=== PATIENT | female | born 1965 | race Caucasian/White ===

== ENCOUNTER 2019-01-09 23:53 | Observation (INO) ==
[2019-01-10] MEDS ORDERED: ZOFRAN INJ 4 MG VIAL IVP ONE ×2 (00:45→01:37)
[2019-01-10] MEDS ORDERED: PEPCID 20 MG IV PREMIX* 20 MG/50 ML BAG IV ONE (00:45)
[2019-01-10] MEDS ORDERED: PEPCID 20 MG IV PREMIX* 20 MG/50 ML BAG ONE (00:46)
[2019-01-10] MEDS ORDERED: ZOFRAN TAB 4 MG ONE (00:46)
[2019-01-10] MEDS ORDERED: ZOFRAN INJ 4 MG VIAL ONE ×2 (00:47→01:36)
[2019-01-10] MEDS ORDERED: NS 100 ML IV 100 ML ONE (00:49)
[2019-01-10 00:57] LABS: BASOPHILS # (AUTO) 0.1 X10^3/uL (0.0-0.1); BASOPHILS % (AUTO) 0.7 % (0.2-1.0); EOSINOPHILS # (AUTO) 0.1 x10^3/uL (0.0-0.2); EOSINOPHILS % (AUTO) 0.8 % (0.9-2.9); HEMATOCRIT 37.2 % (36.0-47.0); HEMOGLOBIN 12.4 g/dL (12.0-16.0); LYMPHOCYTES # (AUTO) 2.5 X10^3/uL (1.3-2.9); LYMPHOCYTES % (AUTO) 22.5 % (21.0-51.0); MEAN CORPUSCULAR HEMOGLOBIN 28.4 pg (27.0-34.0); MEAN CORPUSCULAR HGB CONC 33.2 g/dL (33.0-35.0); MEAN CORPUSCULAR VOLUME 85.6 fL (80.0-100.0); MEAN PLATELET VOLUME 8.2 fL (7.4-11.0); NEUTROPHILS # (AUTO) 7.4 x10^3/uL (2.2-4.8); PLATELET COUNT 203 X10^3/uL (150.0-450.0); RED BLOOD COUNT 4.35 X10^6/uL (3.5-5.4); RED CELL DISTRIBUTION WIDTH 14.2 % (11.6-16.5)
--- NOTE | 2019-01-10 01:11 | CT ---
CT head without contrast Indication: Headache and vomiting Technique: Helical CT images of the brain were obtained without IV contrast. Reformatted images in the coronal and sagittal planes were also generated for review. Comparison: None Findings: Meyers-white differentiation is maintained. No visible acute infarction, intracranial hemorrhage, focal generalized edema, extra-axial collection, hydrocephalus or mass is identified. The visualized paranasal sinuses and mastoid air cells are predominantly clear. The imaged extracranial structures are grossly unremarkable. Impression: No acute intracranial abnormality. Reported By:
[2019-01-10 01:14] LABS: BLOOD UREA NITROGEN 31 mg/dL (7-18); CALCIUM 9.5 mg/dL (8.5-10.1); CARBON DIOXIDE 23.8 mmol/L (21-32); CHLORIDE 100 mmol/L (98-107); COR NA(FOR HYPERGLY) 140 mmol/L (136-145); SODIUM 138 mmol/L (136-145); TROPONIN I < 0.02 ng/mL (0-1.5); eGFR NON BLACK RACES 42 (>60)
[2019-01-10 01:18] LABS: ALANINE AMINOTRANSFERASE 24 Units/L (12-78); ALBUMIN 3.7 g/dL (3.4-5.0); ALKALINE PHOSPHATASE 72 Units/L (46-116); ASPARTATE AMINO TRANSFERASE 6 Units/L (15-37); CKMB % 1.9 % (<4); CREATINE KINASE 127 Units/L (26-192); CREATINE KINASE MB 2.4 ng/mL (0-4.0)
[2019-01-10] MEDS ORDERED: SOLU-Medrol 125 MG VIAL ONE (01:36)
[2019-01-10] MEDS ORDERED: SOLU-Medrol 125 MG VIAL IVP ONE (01:37)
--- NOTE | 2019-01-10 02:25 | DR.EXTPAIN ---
HPI Time seen Time Seen by Provider: 01/10/19 00:02 PCP Primary Care Physician: HPI Comment HPI Comment: DASHA IS 53YR OLD WHITE FEMALE WITH HISTORY OF HYPERTENSION, DM AND CEREBRAL VASCULITIS PRESENTS WITH BELOW COMPLAINT. WEAKNESS AND NUMBNESS STARTED YESTERDAY AND IS INTERMITTENT. HEADACHE, N/V STARTED TODAY. VISION IS BLURRY. HAVE HAD PREVIOUS DECREASE VISION THAT IMPROVE WITH TREATMENT. Complaint/Symptoms Chief Complaint Doctor Comments: RIGHT SIDED WEAKNESS AND NUMBNESS AND HEADACHE WITH NAUSEA AND VOMITING THAT STARTED YESTERDAY. Chief Complaint:: STROKE LIKE SYMPTOMS STARTED YESTERDAY RIGHTSIDED WEAKNESS AN RIGHT SIDE TINGLING AND NUBNESS Nurses notes reviewed Nurses Notes Review: Yes Source History Provided: Patient and Friend Mode of arrival Mode of Arrival: Wheelchair Timing Onset of Chief Complaint: 01/08/19 Context History of: None Associated signs and symptoms Associated Signs and Symptoms: None, Numbeness, Weakness (RIGHT SIDED WEAKNES S.), Headache and Other (BLURRED VISION.) PMH PMH Past Medical History: Yes Past Medical History: Diabetes and Hypertension Past Medical History Comment: CERBAL VASULARICITIS Past Surgical History: Yes Surgical History: Cholecystectomy Past Surgical History Comment: BREAST BIOPSY,EGD Family History History of Family Medical Conditions: Yes Family Medical History: Diabetes Mellitus and Hypertension Social History Does patient currently use any type of tobacco product: No Have you used tobacco products in the last 12 months: No Type of Tobacco Use: None Does any household member use tobacco: No Alcohol Use: None Do you use any recreational Drugs:: No Lives With: Family Lives Where: Home infectious screening In the last 2 months have you had wt loss of >10#?: NO Have you had fever, night sweats or hemotysis?: No Have you traveled outside the country in the last 6 months?: No ROS Review of Systems Constitutional: Weakness (RIGHT SIDED WEAKNESS.) and Fatigue Eyes: Blurred Vision ENTM: No Symptoms Reported Respiratoy: No Symptoms Reported Cardiovascular: No Symptoms Reported Gastrointestinal/Abdominal: Nausea and Vomiting Genitourinary: No Symptoms Reported Neurological: Headache, Numbness, Paresthesia, Weakness and Dizziness Musculoskeletal: Joint Pain Integumentary: Change in Color Hematologic/Lymphatic: Easy Bruising Endocrine: No Symptoms Reported Psychiatric: No Symptoms Reported All Other Systems: Reviewed and Negative PE Vital Signs Vitals: Temperature 97.4 F Pulse Rate [Apical] 98 Pulse Rate 95 Respiratory Rate 20 Blood Pressure [Left Arm] 114/59 Blood Pressure 145/69 O2 Sat by Pulse Oximetry 98 General Limitations: No Limitations General Appearance: Alert and In No Apparent Distress Head Head Exam: Normal Inspection Eyes Eye exam: Normal Appearance ENT ENT Exam: Normal External Ear Exam Neck Neck Exam: Normal Inspection Chest Chest Inspection: Normal Inspection and Symmetric Chest Wall Rise Respiratory Respiratory Exam: Normal Lung Sounds Bilat Respiratory Exam: Bilateral: Rhonchi, Left: Rhonchi, Right: Rhonchi and Lower: Rhonchi Cardiovascular Cardiovascular Exam: Regular Rate and Normal Rhythm Abdominal Exam Abdominal Exam: Normal Inspection, Normal Bowel Sounds and Soft Extremities Extremities Exam: Normal Capillary Refill Back Back Exam: Normal Inspection Neurological Neurological Exam: Alert, Oriented X3 and CN II-XII Intact (RIGHT SIDED WEAKNESS) Psychiatric Psychiatric Exam: Normal Affect and Normal Mood Skin Skin Exam: Erythema MDM Differential Diagnosis Differential Diagnosis: Other (CVA, TIA, VASCULITIS, HEADACHE, CT, PNEUMONIA, GASTRITIS. UTI.) COURSE Treatment Treatment: SEE ORDERS. Education/Counseling Education/Counseling: Patient and Family Educated On: Diagnosis ROR Labs Reviewed Laboratory Results Reviewed?: Yes Result Diagrams: 01/11/19 04:24 01/11/19 04:24 Laboratory: WBC 11.3 X10^3/uL (3.6-10.0) H 01/11/19 04:24 RBC 4.13 X10^6/uL (3.5-5.4) 01/11/19 04:24 Hgb 11.9 g/dL (12.0-16.0) L 01/11/19 04:24 Hct 35.7 % (36.0-47.0) L 01/11/19 04:24 MCV 86.5 fL (80.0-100.0) 01/11/19 04:24 MCH 28.9 pg (27.0-34.0) 01/11/19 04:24 MCHC 33.4 g/dL (33.0-35.0) 01/11/19 04:24 RDW 14.3 % (11.6-16.5) 01/11/19 04:24 Plt Count 200 X10^3/uL (150.0-450.0) 01/11/19 04:24 MPV 8.3 fL (7.4-11.0) 01/11/19 04:24 Neut % (Auto) 85.6 % (42.0-75.0) H 01/11/19 04:24 Lymph % (Auto) 9.3 % (21.0-51.0) L 01/11/19 04:24 Love % (Auto) 5.0 % (0.0-13.0) 01/11/19 04:24 Eos % (Auto) 0.0 % (0.9-2.9) L 01/11/19 04:24 Baso % (Auto) 0.1 % (0.2-1.0) L 01/11/19 04:24 Neut # (Auto) 9.7 x10^3/uL (2.2-4.8) H 01/11/19 04:24 Lymph # (Auto) 1.1 X10^3/uL (1.3-2.9) L 01/11/19 04:24 Love # (Auto) 0.6 x10^3/uL (0.3-0.8) 01/11/19 04:24 Eos # (Auto) 0.0 x10^3/uL (0.0-0.2) 01/11/19 04:24 Baso # (Auto) 0.0 X10^3/uL (0.0-0.1) 01/11/19 04:24 Absolute Nucleated RBC 0.0 /100WBC 01/11/19 04:24 ESR 13 MM/HOUR (0-20) 01/10/19 00:35 INR Target Range - 01/10/19 00:35 INR 0.94 (0.8-1.3) 01/10/19 00:35 APTT 25.5 SECONDS (22.9-36.5) 01/10/19 00:35 PTT Comment - 01/10/19 00:35 Sodium 139 mmol/L (136-145) 01/11/19 04:24 Corrected Sodium 144 mmol/L (136-145) 01/11/19 04:24 Potassium 4.6 mmol/L (3.5-5.1) 01/11/19 04:24 Chloride 103 mmol/L (98-107) 01/11/19 04:24 Carbon Dioxide 24.6 mmol/L (21-32) 01/11/19 04:24 BUN 22 mg/dL (7-18) H 01/11/19 04:24 Creatinine 1.14 mg/dL (0.55-1.02) H 01/11/19 04:24 Est GFR (MDRD) Af Amer > 60 (>60) 01/11/19 04:24 Est GFR (MDRD) Non-Af 53 (>60) L 01/11/19 04:24 Glucose 294 mg/dL (65-99) H 01/11/19 04:24 POC Glucose (mg/dL) 256 mg/dL (65-99) H 01/11/19 10:52 Hemoglobin A1c 9.2 % 01/10/19 05:36 Calcium 8.6 mg/dL (8.5-10.1) 01/11/19 04:24 Corrected Calcium 9.2 mg/dL (8.5-10.1) 01/11/19 04:24 Total Bilirubin 0.50 mg/dL (0.2-1.0) 01/11/19 04:24 AST 6 Units/L (15-37) L 01/11/19 04:24 ALT 22 Units/L (12-78) 01/11/19 04:24 Alkaline Phosphatase 52 Units/L (46-116) 01/11/19 04:24 Creatine Kinase 81 Units/L (26-192) 01/10/19 12:09 CK-MB (CK-2) 2.4 ng/mL (0-4.0) 01/10/19 12:09 CK/CKMB % Calc 3.0 % (<4) 01/10/19 12:09 Troponin I < 0.02 ng/mL (0-1.5) 01/10/19 12:09 C-Reactive Protein 0.60 mg/L (0-3.0) 01/10/19 00:35 Total Protein 6.3 g/dL (6.4-8.2) L 01/11/19 04:24 Albumin 3.2 g/dL (3.4-5.0) L 01/11/19 04:24 Globulin 3.1 g/dL (2.5-4.5) 01/11/19 04:24 Albumin/Globulin Ratio 1.0 Ratio (1.1-2.1) L 01/11/19 04:24 Triglycerides 155 mg/dL (0-150) H 01/10/19 05:36 Cholesterol 141 mg/dL (0-200) 01/10/19 05:36 LDL Cholesterol, Calc 72 mg/dL (0-100) 01/10/19 05:36 HDL Cholesterol 38 mg/dL (40-60) L 01/10/19 05:36 Cholesterol/HDL Ratio 3.7 (0.0-5.0) 01/10/19 05:36 Specimen Type Clean catch urine 01/10/19 03:04 Urine Color Yellow (YELLOW) 01/10/19 03:04 Urine Appearance Clear (CLEAR) 01/10/19 03:04 Urine pH 5.0 (5.0 - 8.0) 01/10/19 03:04 Ur Specific Frederica 1.010 (1.000-1.030) 01/10/19 03:04 Urine Protein Negative (NEGATIVE) 01/10/19 03:04 Urine Glucose (UA) Negative (NEGATIVE) 01/10/19 03:04 Urine Ketones Negative (NEGATIVE) 01/10/19 03:04 Urine Occult Blood Negative (NEGATIVE) 01/10/19 03:04 Urine Nitrite Negative (NEGATIVE) 01/10/19 03:04 Urine Bilirubin Negative (NEGATIVE) 01/10/19 03:04 Urine Urobilinogen Normal (NORMAL) 01/10/19 03:04 Ur Leukocyte Esterase Negative (NEGATIVE) 01/10/19 03:04 XRAY XRAY Interpreted by: Radiologist XRAY Findings: REPORT ON RECORD NOTED AND DISCUSS WITH PATIENT AND HIS FAMILY. EKG Rate: 92 [place]: Normal Rhythm: NSR Block: None Hypertrophy: None (LOW VOLTAGE.) ST: Nonsp Instructions Forms: Patient Portal
[2019-01-10] MEDS ORDERED: XANAX PO PRN (02:38)
[2019-01-10] MEDS ORDERED: SEMAGLUTIDE 0.5 MG subcut SCH (02:38)
[2019-01-10 03:24] LABS: BILIRUBIN,URINE NEGATIVE (NEGATIVE); BLOOD/HEMOGLOBIN,URINE NEGATIVE (NEGATIVE); GLUCOSE, URINE NEGATIVE (NEGATIVE); KETONES,URINE NEGATIVE (NEGATIVE); LEUKOCYTE ESTERASE ,URINE NEGATIVE (NEGATIVE); NITRITES,URINE NEGATIVE (NEGATIVE); PROTEIN,URINE NEGATIVE (NEGATIVE); UROBILINOGEN,URINE NORMAL (NORMAL)
[2019-01-10] MEDS ORDERED: MAALOX or MYLANTA PO PRN (03:44)
[2019-01-10] MEDS ORDERED: MAALOX or MYLANTA ONE (03:45)
[2019-01-10 04:10] LABS: APPEARANCE,URINE CLEAR (CLEAR); COLOR,URINE YELLOW (YELLOW)
[2019-01-10 04:19] VITALS: BMI 44.9
[2019-01-10 05:54] LABS: BASOPHILS % (AUTO) 0.3 % (0.2-1.0); EOSINOPHILS % (AUTO) 0.3 % (0.9-2.9); HEMOGLOBIN 12.3 g/dL (12.0-16.0); LYMPHOCYTES # (AUTO) 1.3 X10^3/uL (1.3-2.9); LYMPHOCYTES % (AUTO) 13.1 % (21.0-51.0); MEAN CORPUSCULAR HEMOGLOBIN 28.7 pg (27.0-34.0); MEAN CORPUSCULAR HGB CONC 33.2 g/dL (33.0-35.0); MEAN CORPUSCULAR VOLUME 86.2 fL (80.0-100.0); MEAN PLATELET VOLUME 8.1 fL (7.4-11.0); MONOCYTES # (AUTO) 0.2 x10^3/uL (0.3-0.8); MONOCYTES % (AUTO) 2.4 % (0.0-13.0); NEUTROPHILS # (AUTO) 8.2 x10^3/uL (2.2-4.8); NEUTROPHILS % (AUTO) 83.9 % (42.0-75.0); PLATELET COUNT 187 X10^3/uL (150.0-450.0); RED BLOOD COUNT 4.29 X10^6/uL (3.5-5.4); RED CELL DISTRIBUTION WIDTH 14.1 % (11.6-16.5); WHITE BLOOD COUNT 9.8 X10^3/uL (3.6-10.0)
[2019-01-10 06:07] LABS: ALANINE AMINOTRANSFERASE 26 Units/L (12-78); ALBUMIN 3.5 g/dL (3.4-5.0); ALKALINE PHOSPHATASE 65 Units/L (46-116); ASPARTATE AMINO TRANSFERASE 10 Units/L (15-37); BLOOD UREA NITROGEN 29 mg/dL (7-18); CALCIUM 9.1 mg/dL (8.5-10.1); CARBON DIOXIDE 21.4 mmol/L (21-32); CHLORIDE 102 mmol/L (98-107); CHOL/HDL RATIO 3.7 (0.0-5.0); CHOLESTEROL 141 mg/dL (0-200); COR NA(FOR HYPERGLY) 142 mmol/L (136-145); CREATININE 1.39 mg/dL (0.55-1.02); HDL CHOLESTEROL 38 mg/dL (40-60); SODIUM 137 mmol/L (136-145); TOTAL PROTEIN 6.8 g/dL (6.4-8.2); TRIGLYCERIDES 155 mg/dL (0-150); eGFR NON BLACK RACES 42 (>60)
[2019-01-10] MEDS: HumuLIN R SUBCUT PRN ×3 (06:23→17:30)
[2019-01-10] MEDS: SOLU-Medrol 40 MG VIAL IVP SCH ×3 (06:23→21:48)
[2019-01-10 06:27] LABS: CKMB % 2.3 % (<4); CREATINE KINASE 88 Units/L (26-192); TROPONIN I < 0.02 ng/mL (0-1.5)
[2019-01-10] MEDS: GLUCOPHAGE PO SCH ×2 (06:47→17:31)
[2019-01-10] MEDS ORDERED: GLUCOPHAGE ONE ×2 (06:48→17:29)
[2019-01-10] MEDS ORDERED: LEXAPRO ONE (08:25)
[2019-01-10] MEDS: LEXAPRO PO SCH (08:34)
[2019-01-10] MEDS: BENICAR TAB 40 MG PO SCH (08:34)
[2019-01-10] MEDS: ASPIRIN EC 81 MG PO SCH (08:34)
[2019-01-10] MEDS: VITAMIN D3 PO SCH (08:35)
[2019-01-10 08:47] LABS: CKMB % 2.8 % (<4); CREATINE KINASE 72 Units/L (26-192); TROPONIN I < 0.02 ng/mL (0-1.5)
[2019-01-10] MEDS: MYCOPHENOLATE MOFETIL 1000 MG PO SCH ×2 (11:00→21:49)
[2019-01-10] MEDS: VIT C E ZN COPPR LUTEIN ZEAXAN PO SCH ×2 (12:11→21:49)
[2019-01-10 12:46] LABS: CREATINE KINASE 81 Units/L (26-192); CREATINE KINASE MB 2.4 ng/mL (0-4.0); TROPONIN I < 0.02 ng/mL (0-1.5)
--- NOTE | 2019-01-10 15:52 | DR.H&P ---
H&P - History & Physical for Day of: H&P Date: 01/10/19 - Chief Complaint Chief Complaint: ACUTE RIGHT SIDE WEAKNESS, R SIDE NUMBNESS, VISION IMPAIRED - History of Present Illness History of Present Illness: 53 WF ER ADMISSION AFTER PRESENTING WITH CO ACUTE RIGHT SIDE WEAKNESS, R SIDE NUMBNESS, VISION IMPAIRED. PT HAS PMH OF DM, HTN, OA, INTERMEDIATE STEROID USE, AUTO IMMUNE VASCULITIS. PT BS ELEVATED IN ER, PT STATES SHE HAS TAKE RX MEDICATION PRESCRIBED, DENIES ANY CP OR SOB, NO UNUSUAL BUTTERFIELD. PT CO BLURRED VISION AND DIFFICULTY WALKING DUE TO RIGHT SIDE WEAKNESS AND NUMBNESS. PT ADMITTED FOR EVALUATION, R/O CVA, HYPERGLYCEMIA CONTROL. - Past Medical History Past Medical History: Anxiety, Arthritis, Diabetes, Hypertension Additional Medical History: INTERMEDIATE STEROID USE. VASCULITIS - Past Surgical History Surgical History: Cholecystectomy, Other - Family History Family Medical History: Diabetes Mellitus, Hypertension - Social History Does patient currently use any type of tobacco product: No Have you used tobacco products in the last 12 months: No Type of Tobacco Use: None Does any household member use tobacco: No Alcohol Use: None Drug Use: None - Medications Home Medications: lansoprazole [From Prevacid] Allergy (Verified 01/10/19 00:12) CONTINUE taking the following medications alprazolam [Xanax] 0.5 mg PO QDAY PRN 01/10/19 [History] aspirin [Aspir-81] 81 mg PO QAM 01/10/19 [History] cetirizine [Zyrtec] 10 mg PO QHS 01/10/19 [History] cholecalciferol (vitamin D3) [Vitamin D3] 5,000 units PO QAM 01/10/19 [History] escitalopram oxalate [Lexapro] 10 mg PO QAM 01/10/19 [History] ibuprofen 800 mg PO Q8H PRN 01/10/19 [History] insulin detemir U-100 [Levemir U-100 Insulin] 20 units SUBCUT QHS 01/10/19 [History] metformin 1,000 mg PO BID 01/10/19 [History] mycophenolate mofetil [CellCept] 1,000 mg PO BID 01/10/19 [History] olmesartan [Benicar] 20 mg PO QAM 01/10/19 [History] pantoprazole [Protonix] 40 mg PO QHS 01/10/19 [History] semaglutide [Ozempic] 0.5 mg SUBCUT WEEKLY 01/10/19 [History] vit C,B-Hf-ovbpe-lutein-zeaxan [PreserVision AREDS-2] 1 cap PO BID 01/10/19 [History] - Review of Systems Constitutional: Weakness Eyes: Vision Change ENT: No Symptoms Reported Respiratory: No Symptoms Reported Cardiovascular: Palpitations Gastrointestinal: No Symptoms Reported Genitourinary: No Symptoms Reported Musculoskeletal: Neck Pain Skin: No Symptoms Reported Neurological: Weakness, Numbness - Physical Exam Vital Signs: Temperature 98.4 F Pulse Rate [Apical] 94 Pulse Rate 95 Respiratory Rate 18 Blood Pressure [Left Arm] 126/68 Blood Pressure 145/69 O2 Sat by Pulse Oximetry 94 Oriented: Normal Eyes: Blurred Vision Ear: Normal Nose: Normal Throat: Normal Respiratory: RLL Diminished, LLL Diminished Cardiovascular: Normal, Edema : Normal Auscultation: Bowel Sounds: Normal Palpation: Other (VENTRAL HERNIA) Tenderness: Normal Skin: Decreased [place]urgur Musculoskeletal: Right, Arm, Leg, Motor Deficit, Sensory Deficit Psychiatric: Anxiety Affect: Anxious Speech Pattern: Clear, Appropriate - Assessment/Plan (1) TIA (transient ischemic attack) Status: Acute Plan: ADMIT, SERIAL CE AND EKG. CT HEAD ON ADMISSION IN ER, MRI/MRA BRAIN ON FRIDAY. BLOOD SUGAR CONTROL, BP CONTROL. ASPIRIN AND STATIN, PRN SUPPLEMENTAL O2. GENTLE IV HYDRATION, STRICT I & OS. CAROTID ARTERY US (2) Hypertension Status: Acute (3) Diabetes Status: Acute (4) Hyperglycemia due to type 2 diabetes mellitus Status: Acute (5) Acute right-sided muscle weakness Status: Acute (6) Paresthesia and pain of right extremity Status: Acute (7) Vision impairment Status: Acute - Allergies Allergies/Adverse Reactions: Allergies Allergy/AdvReac Type Severity Reaction Status Date / Time lansoprazole [From Prevacid] Allergy Verified 01/10/19 00:12
[2019-01-10] MEDS ORDERED: SNACK - Diabetic Appropriate PO SCH ×2 (20:00)
[2019-01-10] MEDS ORDERED: ZyrTEC TAB 10 MG PO SCH (21:00)
[2019-01-10] MEDS ORDERED: LEVEMIR SC SCH (21:00)
[2019-01-10] MEDS ORDERED: PROTONIX TAB 40 MG PO SCH (21:00)
[2019-01-11 05:17] LABS: BASOPHILS % (AUTO) 0.1 % (0.2-1.0); HEMATOCRIT 35.7 % (36.0-47.0); HEMOGLOBIN 11.9 g/dL (12.0-16.0); LYMPHOCYTES # (AUTO) 1.1 X10^3/uL (1.3-2.9); LYMPHOCYTES % (AUTO) 9.3 % (21.0-51.0); MEAN CORPUSCULAR HEMOGLOBIN 28.9 pg (27.0-34.0); MEAN CORPUSCULAR HGB CONC 33.4 g/dL (33.0-35.0); MEAN CORPUSCULAR VOLUME 86.5 fL (80.0-100.0); MEAN PLATELET VOLUME 8.3 fL (7.4-11.0); MONOCYTES # (AUTO) 0.6 x10^3/uL (0.3-0.8); NEUTROPHILS # (AUTO) 9.7 x10^3/uL (2.2-4.8); NEUTROPHILS % (AUTO) 85.6 % (42.0-75.0); PLATELET COUNT 200 X10^3/uL (150.0-450.0); RED BLOOD COUNT 4.13 X10^6/uL (3.5-5.4); RED CELL DISTRIBUTION WIDTH 14.3 % (11.6-16.5); WHITE BLOOD COUNT 11.3 X10^3/uL (3.6-10.0)
[2019-01-11] MEDS ORDERED: GLUCOPHAGE ONE ×2 (05:28→16:30)
[2019-01-11 05:29] LABS: ALANINE AMINOTRANSFERASE 22 Units/L (12-78); ALBUMIN 3.2 g/dL (3.4-5.0); ALKALINE PHOSPHATASE 52 Units/L (46-116); ASPARTATE AMINO TRANSFERASE 6 Units/L (15-37); BLOOD UREA NITROGEN 22 mg/dL (7-18); CALCIUM 8.6 mg/dL (8.5-10.1); CARBON DIOXIDE 24.6 mmol/L (21-32); CHLORIDE 103 mmol/L (98-107); COR CA(FOR HYPOALB) 9.2 mg/dL (8.5-10.1); COR NA(FOR HYPERGLY) 144 mmol/L (136-145); CREATININE 1.14 mg/dL (0.55-1.02); SODIUM 139 mmol/L (136-145); TOTAL PROTEIN 6.3 g/dL (6.4-8.2); eGFR NON BLACK RACES 53 (>60)
[2019-01-11] MEDS: SOLU-Medrol 40 MG VIAL IVP SCH ×2 (05:57→14:40)
[2019-01-11] MEDS: HumuLIN R SUBCUT PRN ×3 (05:58→16:36)
[2019-01-11] MEDS: GLUCOPHAGE PO SCH ×2 (05:59→16:37)
[2019-01-11] MEDS ORDERED: ATIVAN INJ 2 MG VIAL IVP ONE (07:30)
[2019-01-11] MEDS ORDERED: BENADRYL INJ 50 MG VIAL IVP ONE (07:30)
[2019-01-11] MEDS ORDERED: LEXAPRO ONE (08:16)
[2019-01-11] MEDS: VITAMIN D3 PO SCH (08:27)
[2019-01-11] MEDS: BENICAR TAB 40 MG PO SCH (08:28)
[2019-01-11] MEDS: LEXAPRO PO SCH (08:29)
[2019-01-11] MEDS: ASPIRIN EC 81 MG PO SCH (08:29)
[2019-01-11] MEDS: MYCOPHENOLATE MOFETIL 1000 MG PO SCH (08:29)
[2019-01-11] MEDS: VIT C E ZN COPPR LUTEIN ZEAXAN PO SCH (08:30)
[2019-01-11] MEDS ORDERED: MOTRIN TAB 800 MG PO PRN (12:47)
--- NOTE | 2019-01-11 14:24 | VAS ---
Exam: Carotid Doppler exam History: 53-year-old female possible carotid artery stenosis. Comparison: None Findings: Minimal degree of plaque is present in both carotid systems. On the right, peak systolic velocities in cm/sec of the right internal and common carotid arteries measure 60 and 105 respectively. The greatest ICA/CCA ratio on the right is 0.63 On the left, peak systolic velocities in cm/sec of the left internal and common carotid arteries measure 56 and 116 respectively. The greatest ICA/CCA ratio on the left is 0.48. Antegrade flow is documented in patent vertebral arteries bilaterally. Impression: No hemodynamically significant carotid stenosis is seen on either side. Reported By:
--- NOTE | 2019-01-11 16:19 | MRI ---
MRA HEAD WITHOUT CONTRAST CLINICAL HISTORY: 53-year-old female with headache and right-sided weakness with stroke-like symptoms. COMPARISONS: CT head 01/10/2019, carotid Doppler 01/11/2019. TECHNIQUE: 3-D time of flight magnetic resonance angiographic images of the [place] of [place] were obtained and presented as maximum intensity projection images in rotating format. FINDINGS: The vertebral arteries are codominant. Bilateral PICA are present. The basilar artery is normal in appearance and gives off normal bilateral and superior cerebellar arteries. Moderate caliber bilateral posterior communicating arteries are present with origin of the right INFORMATICS COORDINATOR and small caliber left P1 segment. The internal carotid arteries are normal from the distal cervical segments to the carotid terminus. The middle and left anterior cerebral arteries are normal in course and caliber. Small caliber right A1 with dominant left A1 segment. There is a small caliber anterior communicating artery. IMPRESSION: 1. No aneurysm, high-grade stenosis, complete occlusion, dissection or vascular malformation. 2. origin right INFORMATICS COORDINATOR. Reported By:
[2019-01-11 19:15] VITALS: BP 127/81
[2019-01-11] MEDS ORDERED: ZyrTEC TAB 10 MG PO SCH (21:00)
--- NOTE | 2019-01-27 23:47 | DR.CARTERD ---
- Discharge Summary for: Discharge Summary for Date of:: 01/11/19 - Admission Date Date of Admission: 01/10/19 - Admission Diagnoses Admission Diagnosis: (1) TIA (transient ischemic attack) (2) Hypertension (3) Diabetes (4) Hyperglycemia due to type 2 diabetes mellitus (5) Acute right-sided muscle weakness - Discharge Date Discharge Date: 01/11/19 - Discharge Diagnoses Discharge Diagnosis: (1) TIA (transient ischemic attack) (2) Hypertension (3) Diabetes (4) Hyperglycemia due to type 2 diabetes mellitus (5) Acute right-sided muscle weakness - Hospital Course Hospital Course: DAY ONE, PATIENT IS A 53 YEAR OLD WF ER ADMISSION AFTER PRESENTING WITH CO ACUTE RIGHT SIDE WEAKNESS, R SIDE NUMBNESS, VISION IMPAIRED. PT HAS PMH OF DM, HTN, OA, RETAIL BUSINESS ANALYST STEROID USE, AUTO IMMUNE VASCULITIS. PT BS ELEVATED IN ER, PT STATED SHE HAD TAKEN RX MEDICATION PRESCRIBED, DENIED ANY CP OR SOB, NO UNUSU AL BUTTERFIELD. PT CO BLURRED VISION AND DIFFICULTY WALKING DUE TO RIGHT SIDE WEAKNESS AND NUMBNESS. PT ADMITTED FOR EVALUATION, R/O CVA, HYPERGLYCEMIA CONTROL. DAY TWO, PATIENT LAYING IN BED ALERT AND ORIENTED ON MORNING ROUNDS. PATIENT REPORTS SYMPTOMS HAVE RESOLVED THIS AM. NO RIGHT SIDED WEAKNESS NOTED. ZERO SIGNS AND SYMPTOMS OF ACUTE DISTRESS NOTED. LUNGS CL]EAR TO AUSCULTATION. ABNORMAL LABS INCLUDED WBC 11.3, HGB 11.9, HCT 35.7, BUN 22, CREATININE 1.14, GFR NON 53, GLUCOSE 294, AST 6. BRAIN MRI WITH MRA REVEALED: No aneurysm, high-grade stenosis, complete occlusion, dissection or vascular malformation. origin right MEDICAL RECORDS AUDITOR. CAROTID ARTERY ULTRASOUND REVEALED: No hemodynamically significant carotid stenosis is seen on either side. VITALS WERE 97.4, 98, 20, 98% ON RA, 114/59. WE PLANNED FOR DISCHARGE. INSTRUCTIONS FOR MEDICATIONS AND FOLLOW UP WERE DISCUSSED WITH PATIENT AND FAMILY, BOTH VERBALIZED UNDERSTANDING. PATIENT DISCHARGED HOME IN STABLE CONDITION WITH FAMILY. - Discharge Medications Discharge Medications: Home Medication List Levemir U-100 Insulin 20 units SUBCUT QHS 01/10/19 [History] Ozempic 0.5 mg SUBCUT WEEKLY 01/10/19 [History] PreserVision AREDS-2 1 cap PO BID 01/10/19 [History] Zyrtec 10 mg PO QHS 01/10/19 [History] alprazolam [Xanax] 0.5 mg PO QDAY PRN 01/10/19 [History] aspirin [Aspir-81] 81 mg PO QAM 01/10/19 [History] cholecalciferol (vitamin D3) [Vitamin D3] 5,000 units PO QAM 01/10/19 [History] escitalopram oxalate [Lexapro] 10 mg PO QAM 01/10/19 [History] ibuprofen 800 mg PO Q8H PRN 01/10/19 [History] metformin 1,000 mg PO BID 01/10/19 [History] mycophenolate mofetil [CellCept] 1,000 mg PO BID 01/10/19 [History] olmesartan [Benicar] 20 mg PO QAM 01/10/19 [History] pantoprazole [Protonix] 40 mg PO QHS 01/10/19 [History] ondansetron HCl [Zofran] 4 mg PO Q6H PRN #20 tab 01/11/19 [Rx] prednisone 10 mg PO BID #60 tab 01/11/19 [Rx] Prescriptions: ondansetron HCl [Zofran] Justin Quezada prednisone Justin Quezada - Discharge Disposition Discharge Disposition: PATIENT TO FOLLOW UP IN OUR OFFICE IN ONE WEEK. PATIENT TO FOLLOW UP WITH DR. LEDEZMA AT NEXT AVAILABLE APPOINTMENT TIME.
== END 2019-01-11 17:30 | disposition home or self-care (01) ==
LOC: ER 23:57 → MED/SURG 23:57
PROVIDERS: ADMIT Internal Medicine; ATTEND Internal Medicine
DX: I10 Essential (primary) hypertension; R20.0 Anesthesia of skin; R51 Headache; M62.81 Muscle weakness (generalized); Z79.4 Long term (current) use of insulin; R20.2 Paresthesia of skin; I77.6 Arteritis, unspecified; R11.2 Nausea with vomiting, unspecified; E11.65 Type 2 diabetes mellitus with hyperglycemia; G45.8 Other transient cerebral ischemic attacks and related syndromes; H54.7 Unspecified visual loss
CPT/HCPCS: 36415; 70450; 70544; 80053; 80061; 81003; 82533; 82550; 82553; 83036; 84484; 85025; 85610; 85652; 85730; 86140; 93005; 93880; 94760; 96365; 96372; 96374; 96375; 99218; 99284; A4216; A4222; S0028; G0378; J1200; J1815; J2060; J2405; J2920; J2930; J7050; S0119; S0181